=== PATIENT | female | born 1970 | race Caucasian/White ===

== ENCOUNTER 2021-02-06 13:15 | Outpatient (RCR) | payer MEDICARE, MEDICAID | END 2021-02-22 | disposition home or self-care (01) | LOC: MKS.ESL.PT | DX: R29.6 Repeated falls (principal); R29.898 Other symptoms and signs involving the musculoskeletal system ==

== ENCOUNTER → 2021-03-15 | Outpatient (CLI) | payer MEDICARE, MEDICAID | LOC: COL.CARD 07:16 | DX: G25.3 Myoclonus (principal); S06.9X9S Unspecified intracranial injury with loss of consciousness of unspecified duration, sequela ==

== ENCOUNTER 2021-03-20 13:15 | Outpatient (RCR) | payer MEDICARE, MEDICAID | END 2021-03-31 | disposition home or self-care (01) | LOC: MKS.ESL.OT | DX: R29.6 Repeated falls (principal); R29.898 Other symptoms and signs involving the musculoskeletal system ==

== ENCOUNTER → 2022-06-29 | Outpatient (CLI) | payer MEDICARE, MEDICAID | LOC: COL.RAD 11:38 | DX: M47.816 Spondylosis without myelopathy or radiculopathy, lumbar region (principal); G25.3 Myoclonus; F41.9 Anxiety disorder, unspecified; M54.17 Radiculopathy, lumbosacral region; G62.9 Polyneuropathy, unspecified ==

== ENCOUNTER → 2023-02-27 | Outpatient (CLI) | payer MEDICARE, MEDICAID ==
[~2023-02-27] MED LIST: KLONOPIN 0.5MG0.5 MG PO; NEURONTIN100 MG/CAP PO; ZOLOFT 100MG100 MG PO
== END ==
LOC: COL.RAD 12:06
DX: R93.89 Abnormal findings on diagnostic imaging of other specified body structures (principal); M48.02 Spinal stenosis, cervical region
CPT/HCPCS: A9575